=== PATIENT | female | born 1935 | race Two or more races ===

== ENCOUNTER 2016-10-28 10:10 | Emergency (ER) | payer OTHER ==
[2016-10-28 10:19] VITALS: BP 144/74; TEMP 98.4; BMI 21.5
--- NOTE | 2016-10-28 11:39 | PDOC ---
History of Present Illness - General Chief Complaint: Respiratory Stated Complaint: COLD SYMPTOMS Time Seen by Provider: 10/28/16 11:19 - History of Present Illness Initial Comments: 10/28/16 11:33 CHIEF COMPLAINT: cough, sneezing HISTORY OF PRESENT ILLNESS: 80 yo F with hx of HTN and HLD presents to [facility] with cough and sneezing x 2 weeks. Patient states she does not have any congestion but does have "some phlegm sometimes when I cough a lot, mostly the cough is just irritating." Patient denies any fever, nausea, vomiting, or diarrhea. She denies any throat pain, chest pain, shortness of breath, or palpitations. No recent travel or sick contacts. PAST MEDICAL HISTORY: as per HPI FAMILY HISTORY: Denies SOCIAL HISTORY: Denies tobacco, alcohol, illicit drug use. SURGICAL HISTORY: Denies ALLERGIES: No known drug allergies REVIEW OF SYSTEMS General/Constitutional: Denies fever or chills. Denies weakness, weight change. HEENT: Denies change in vision. Denies ear pain or discharge. Denies sore throat. Cardiovascular: Denies chest pain or shortness of breath. Respiratory: Cough x 2 weeks with minimal phlegm. Denies wheezing, or hemoptysis. Gastrointestinal: Denies nausea, vomiting, diarrhea or constipation. Denies rectal bleeding. Genitourinary: Denies dysuria, frequency, or change in urination. Musculoskeletal: Denies joint or muscle swelling or pain. Skin: Denies rash or easy bruising. Neurologic: Denies headache, vertigo, loss of consciousness, or loss of sensation. PHYSICAL EXAM General Appearance: Well-appearing, appropriately dressed. No apparent distress , no intoxication. HEENT: EOMI, PERRLA, normal ENT inspection, normal voice, TMs normal, pharynx normal. No conjunctival pallor. No photophobia, scleral icterus. Respiratory/Chest: Lungs CTAB. Cardiovascular: RRR. S1, S2. Gastrointestinal/Abdominal: Normal bowel sounds. Abdomen soft, non-distended. No tenderness or rebound tenderness. No organomegaly, pulsatile mass, guarding , hernia, hepatomegaly, splenomegaly. Musculoskeletal: No edema to legs bilaterally. Integumentary: Appropriate color, dry, warm. No cyanosis, erythema, jaundice or rash Neurologic: vegetable washer II-XII intact. Fully oriented, alert. Appropriate mood/affect. Motor strength 5/5. No appreciable EOM palsy, facial droop or sensory deficit. 10/28/16 12:20 Past History - Past Medical History Allergies/Adverse Reactions: Allergies Allergy/AdvReac Type Severity Reaction Status Date / Time No Known Allergies Allergy Verified 10/28/16 10:19 Home Medications: Ambulatory Orders Dextromethorphan HBr [Robitussin] 15 mg PO QID PRN #28 capsule 10/28/16 HTN: Yes Hypercholesterolemia: Yes - Psycho/Social/Smoking Cessation Hx Suicidal Ideation: No Smoking History: Never smoked Hx Alcohol Use: No Drug/Substance Use Hx: No *Physical Exam - Vital Signs Last Vital Signs Temp Pulse Resp BP Pulse Ox 98.4 F 102 H 20 144/74 96 10/28/16 10:16 10/28/16 10:16 10/28/16 10:16 10/28/16 10:16 10/28/16 10:16 Medical Decision Making - Medical Decision Making 10/28/16 12:22 80 yo F with hx of HTN, HLD presents to [facility] with dry cough x 2 weeks. Vital signs remarkable for HR 102, O2 sat 96 on RA. Exam unremarkable. -EKG -CXR -Robitussin AC Repeat vitals, HR 93, O2 sat 99 on RA. *DC/Admit/Observation/Transfer Diagnosis at time of Disposition: Cough - Discharge Dispostion Disposition: HOME Condition at time of disposition: Stable Admit: No - Prescriptions Prescriptions: Dextromethorphan HBr [Robitussin] 15 mg PO QID PRN #28 capsule PRN Reason: Cough - Referrals Referrals: Vish Amanda MD [Primary Care Provider] - - Patient Instructions Printed Discharge Instructions: DI for Cough -- Adult Additional Instructions: Please take medication as prescribed. Please follow up with your primary care doctor if symptoms do not improve in 3 days. If you experience any fever, chills , shortness of breath, chest pain, palpitations, swelling of the legs, headache , change in vision, difficulty speaking or swallowing, or you develop any new or worsening symptoms, please return to the ER. Por favor, tome la medicacin segn lo prescrito. Por favor, siga con [facility] si los sntomas no mejoran en 3 curran. Si experimenta fiebre, escalofros, dificultad para respirar, dolor en el pecho, palpitaciones, hinchaz n de las piernas, dolor de maria elena, cambios en la visin, dificultad para hablar o tragar, o si desarrolla sntomas nuevos o que empeoran, regrese a la jus de emergencias. Print Language: [id number]
[2016-10-28] MEDS ORDERED: guaiFENesin/CODEINE 5 ML UNIT-DOSE CUPS PO ONE ×2 (11:43→11:46)
[2016-10-28 12:12] VITALS: PULSE 93
--- NOTE | 2016-10-29 13:33 | EKG ---
Test Reason : Blood Pressure : / mmHG Vent. Rate : 090 BPM Atrial Rate : 090 BPM P-R Int : 172 ms QRS Dur : 060 ms QT Int : 334 ms P-R-T Axes : 055 006 058 degrees QTc Int : 408 ms NORMAL SINUS RHYTHM SEPTAL INFARCT , AGE UNDETERMINED ABNORMAL ECG NO PREVIOUS ECGS AVAILABLE Confirmed by JAZMIN ESTRADA, STEPHANIE ([id number]) on 10/29/2016 1:33:21 PM Referred By: MARICARMEN Confirmed By:STEPHANIE WU MD
== END 2016-10-28 13:48 | disposition home or self-care (01) ==
LOC: JERFT 10:10
DX: R05 Cough (principal); I10 Essential (primary) hypertension; E78.00 Pure hypercholesterolemia, unspecified; E78.5 Hyperlipidemia, unspecified
CPT/HCPCS: 71020-TC; 93005; 93010; 99281-25

== ENCOUNTER 2022-10-01 08:21 | Emergency (ER) | payer OTHER ==
[2022-10-01 08:30] VITALS: BP 136/65; PULSE 99; RESP 18; TEMP 97.6; BMI 47.0
== END 2022-10-01 09:16 | disposition home or self-care (01) ==
LOC: JERFT 08:21 → JER 08:21 → JERFT 09:16
PROC: 3E1B78Z Irrigation of Ear using Irrigating Substance, Via Natural or Artificial Opening (ICD-10-PCS; principal; 2022-10-01)
DX: H61.91 Disorder of right external ear, unspecified (principal); H91.91 Unspecified hearing loss, right ear
CPT/HCPCS: 69210; 99283-25